=== PATIENT | female | born 1955 | race Caucasian/White ===

== ENCOUNTER 2018-08-15 19:11 | Emergency (ER) | payer BC ==
[~2018-08-15] VITALS: Ht 170.2 cm; Wt 70.3 kg
[2018-08-15 19:51] VITALS: BP 138/84
[2018-08-15] MEDS ORDERED: methylPREDNISolone SOD SUCC 125 MG/2 ML VL IV ONE (20:00)
== END 2018-08-15 20:32 | disposition home or self-care (01) ==
LOC: ER 19:11
DX: T78.1XXA Other adverse food reactions, not elsewhere classified, initial encounter (principal); R22.9 Localized swelling, mass and lump, unspecified; E03.9 Hypothyroidism, unspecified; X58.XXXA Exposure to other specified factors, initial encounter
CPT/HCPCS: 94761; 96374; 99284; J2930